=== PATIENT | female | born 1950 | race Caucasian/White ===

== ENCOUNTER 2017-08-14 10:15 | Outpatient (CLI) | payer MEDICARE, MEDICAID ==
[2017-08-14] MEDS ORDERED: ISOVUE-370 76%-LOCM 1 ML ONE (12:14)
== END 2017-08-14 10:16 | disposition home or self-care (01) ==
LOC: BICCT 10:15
PROVIDERS: ATTEND Internal Medicine Cardiovascular Disease
DX: I70.201 Unspecified atherosclerosis of native arteries of extremities, right leg (principal); I70.0 Atherosclerosis of aorta
CPT/HCPCS: 75635

== ENCOUNTER 2017-08-19 11:57 | Outpatient (CLI) | payer MEDICARE, MEDICAID | END 2017-08-19 11:58 | disposition home or self-care (01) | LOC: BICRAD 11:57 | PROVIDERS: ATTEND Specialist | DX: J44.9 Chronic obstructive pulmonary disease, unspecified (principal); R91.1 Solitary pulmonary nodule | CPT/HCPCS: 71046 ==

== ENCOUNTER 2017-08-21 12:46 | Emergency (ER) | payer MEDICARE, MEDICAID ==
[2017-08-21 13:21] LABS: #Basophils 0.1 thou/uL (0.0-0.2); #Eosinphils 0.2 thou/uL (0.0-0.7); #Lymphocytes 3.4 thou/uL (1.20-3.40); #Monocytes 0.6 thou/uL (0.11-0.59); #Neutrophils 5.7 thou/uL (1.40-6.50); %Basophils 1.2 % (0.0-1.0); %Eosinophils 1.7 % (0.0-10.0); %Lymphocytes 34.3 % (21.0-51.0); %Monocytes 6.2 % (0.0-10.0); %Neutrophils 56.7 % (42.0-75.0); Hemoglobin 16.7 g/dL (12.0-16.0); Mean Corpuscular HGB CONC 33.9 g/dL (32.0-36.0); Mean Corpuscular Hemoglobin 31.5 pg (27.0-31.0); Mean Corpuscular Volume 92.8 fl (81.0-99.0); Mean Platelet Volume 9.1 fL (7.4-10.4); Platelet Count 238 thou/uL (130-400); RBC Distribution Width 11.9 % (11.5-14.5); White Blood Cell (WBC) Count 10.1 thou/uL (4.8-10.8)
[2017-08-21 13:47] LABS: ALT (SGPT) 16 U/L (8-55); AST (SGOT) 30 U/L (5-34); Albumin 4.3 g/dL (3.4-4.8); Alkaline Phosphatase 124 U/L (40-150); Anion Gap 13 mmol/L (10-20); BUN (Urea Nitrogen) 15 mg/dL (9.8-20.1); Bilirubin, Total 0.4 mg/dL (0.2-1.2); CK (CPK) 22 U/L (29-168); Calc. Creatinine Clearance 0 mL/min (70-130); Calcium 10.1 mg/dL (7.8-10.44); Carbon Dioxide 25 mmol/L (23-31); Chloride 102 mmol/L (98-107); Estimated GFR-MDRD 54; Globulin 4.1 g/dL (2.4-3.5); Glucose 140 mg/dL (80-115); Potassium 4.8 mmol/L (3.5-5.1); Protein, Total 8.4 g/dL (6.0-8.3); Sodium 135 mmol/L (136-145)
[2017-08-21 13:50] LABS: CKMB 0.6 ng/mL (0-6.6); Troponin I Less than 0.010 ng/mL (< 0.028)
--- NOTE | 2017-08-21 14:43 | RAD ---
CHEST PA AND LATERAL: History: 67-year-old female with history of cough. Patient is a smoker. FINDINGS: Monitor leads overlie the chest. There is a stable circumscribed 1.3 cm diameter nodule in the right upper lobe. There is a small poorly defined slightly elongated parenchymal density seen in the region of the left upper lobe which was not demonstrated on the prior study. Given symptoms of cough, rebekah ivably this could represent a very small patch of pneumonia or pneumonitis. If the patient does have evidence for clinical pneumonia, then treatment and short term follow up is recommended. If this area of parenchymal density does not resolve on these short term follow up studies, then a follow up ches t CT scan is warranted to exclude the possibility of a small poorly circumscribed neoplastic mass. He art size is within normal limits. No evidence for other significant acute process. IMPRESSION: Poorly circumscribed somewhat oblong 0.6 x 1.4 cm diameter density in the left upper lobe region, new from prior exam of 01-14-14. If this is not received following treatment for pneumonia or if the pat ient has no symptoms of pneumonia, then follow up CT scan of the chest is recommended to exclude the possibility of a small mass. Stable circumscribed nodule in the right upper lobe. Atherosclerosis of the aorta. Mild hyperinflation and lower lung zone chronic changes. Code LN.
--- NOTE | 2017-08-21 14:52 | CT ---
HEAD CT WITHOUT CONTRAST: Date: 08/21/17 COMPARISON: 09/06/12. HISTORY: Multiple falls, cough and subjective fever. TECHNIQUE: Serial axial CT imaging at 5 mm intervals from vertex through skull base without contrast. FINDINGS: There is mild ethmoid air cell mucosal thickening bilaterally. There is no displaced calvarial fractu re. There is no intracranial hemorrhage, midline shift, mass effect, or ventricular enlargement. IMPRESSION: No acute findings. POS: [facility]
== END 2017-08-21 15:22 | disposition home or self-care (01) ==
LOC: ERS 12:46
DX: J18.9 Pneumonia, unspecified organism (principal); I10 Essential (primary) hypertension; F43.10 Post-traumatic stress disorder, unspecified; F17.210 Nicotine dependence, cigarettes, uncomplicated; Z79.899 Other long term (current) drug therapy
CPT/HCPCS: 70450; 71046; 80053; 82550; 82553; 84443; 84484; 85025; 93005

== ENCOUNTER 2017-09-05 10:01 | Outpatient (CLI) | payer MEDICARE, MEDICAID | END 2017-09-05 10:02 | disposition home or self-care (01) | LOC: BICMRI 10:01 | PROVIDERS: ATTEND Specialist | DX: S09.90XA Unspecified injury of head, initial encounter (principal); J44.9 Chronic obstructive pulmonary disease, unspecified; W19.XXXA Unspecified fall, initial encounter | CPT/HCPCS: 70544; 70551 ==

== ENCOUNTER 2017-10-02 15:07 | Outpatient (CLI) | payer MEDICARE, MEDICAID | END 2017-10-02 15:08 | disposition home or self-care (01) | LOC: BICRAD 15:07 | PROVIDERS: ATTEND Specialist | DX: M25.551 Pain in right hip (principal); M25.561 Pain in right knee ==

== ENCOUNTER 2018-10-06 12:37 | Inpatient (IN) | payer MEDICARE, MEDICAID ==
[2018-10-06 13:02] LABS: #Basophils 0.1 thou/uL (0.0-0.2); #Lymphocytes 2.9 thou/uL (1.20-3.40); #Monocytes 0.8 thou/uL (0.11-0.59); #Neutrophils 7.3 thou/uL (1.40-6.50); %Basophils 0.7 % (0.0-1.0); %Eosinophils 0.3 % (0.0-10.0); %Lymphocytes 26.1 % (21.0-51.0); %Monocytes 6.8 % (0.0-10.0); %Neutrophils 66.1 % (42.0-75.0); Hemoglobin 15.5 g/dL (12.0-16.0); Mean Corpuscular HGB CONC 32.7 g/dL (32.0-36.0); Mean Corpuscular Hemoglobin 29.4 pg (27.0-31.0); Mean Platelet Volume 8.8 fL (7.4-10.4); Platelet Count 160 thou/uL (130-400); RBC Distribution Width 11.6 % (11.5-14.5); Red Blood Cell (RBC) Count 5.27 mill/uL (4.20-5.40)
--- NOTE | 2018-10-06 13:17 | RAD ---
RADIOGRAPH CHEST 2 VIEWS: DATE: 10/06/2018 HISTORY: 68-year-old female with cardiac murmur and chest pain. COMPARISON: 08/21/2017 FINDINGS: There is no airspace density, pulmonary edema, pleural effusion, pneumothorax, or cardiomegaly. The n oncalcified 13 x 14 x 14 mm right upper lobe pulmonary nodule is unchanged. The 13 x 5 mm focal nodular density in the left upper lobe has not increased in size. It may be sligh tly smaller, perhaps scar. IMPRESSION: 1. No acute cardiopulmonary findings. 2. Right upper lobe pulmonary nodule unchanged. 3. Small left upper lobe lesion may be slightly smaller now.
[2018-10-06 13:26] LABS: ALT (SGPT) 12 U/L (8-55); AST (SGOT) 23 U/L (5-34); Albumin 4.8 g/dL (3.4-4.8); Alkaline Phosphatase 108 U/L (40-150); Anion Gap 16 mmol/L (10-20); BUN (Urea Nitrogen) 8 mg/dL (9.8-20.1); Bilirubin, Total 0.7 mg/dL (0.2-1.2); CK (CPK) 153 U/L (29-168); Calc. Creatinine Clearance 0 mL/min (70-130); Carbon Dioxide 23 mmol/L (23-31); Chloride 103 mmol/L (98-107); Estimated GFR-MDRD 62; Glucose 97 mg/dL (80-115); Potassium 3.6 mmol/L (3.5-5.1); Protein, Total 7.8 g/dL (6.0-8.3); Sodium 138 mmol/L (136-145)
[2018-10-06] MEDS ORDERED: Ondansetron ODT 4 MG TAB SL PRN (14:00)
[2018-10-06] MEDS ORDERED: Lorazepam 1 MG TAB PO PRN (14:00)
[2018-10-06] MEDS ORDERED: Ondansetron PF 4 MG/2 ML Vial IVP PRN (14:00)
[2018-10-06] MEDS ORDERED: Acetaminophen 325 MG TAB PO PRN (14:00)
[2018-10-06] MEDS ORDERED: Lorazepam 2 MG/ML VIAL ONE (14:15)
[2018-10-06 14:31] LABS: Bilirubin Negative (Negative); Blood, Urine Moderate (Negative); Glucose, Urine (Dipstick) Negative (Negative); Leukocyte Negative (Negative); Nitrite Negative (Negative); Protein, Urine (Dipstick) 100 mg/dL (Neg-Trace); Urobilinogen 0.2 mg/dL (Less than 2)
[2018-10-06 14:35] LABS: Clarity Clear (Clear)
[2018-10-06 14:37] LABS: Bacteria/HPF None Seen HPF (None Seen); Squamous Epithelial 0-3 HPF (0-3); WBC/HPF 0-3 HPF (0-3)
[2018-10-06 16:14] VITALS: BMI 20.9
[2018-10-06 17:19] LABS: Troponin I Less than 0.010 ng/mL (< 0.028)
[2018-10-06 19:17] LABS: Troponin I 0.016 ng/mL (< 0.028)
[2018-10-06] MEDS ORDERED: Nitroglycerin 0.4 MG TAB (25 Tab Bottle) PO PRN (20:17)
[2018-10-06] MEDS ORDERED: Sodium Chloride 0.9% 1,000 ML IV SCH (20:30)
[2018-10-06] MEDS: Sodium Chloride 0.9% 1,000 ML IV SCH (20:40)
[2018-10-06] MEDS ORDERED: Prevnar 13-Val Conj/PF 0.5 ML SYRINGE IM ONE (21:00)
[2018-10-06] MEDS: Bupropion 150 MG XL TAB PO SCH (21:30)
--- NOTE | 2018-10-07 | HP ---
CHIEF COMPLAINT: On admission, chest pain. HISTORY OF PRESENT ILLNESS: The patient is a 68-year-old female who has been undergoing a lot of stress and grief. She has recently lost two close family members. In addition, she has not been taking her bipolar medication as directed and has not slept in over 5 days. She came in Dr. Shine' office on the day of admission, where she confessed to having substernal chest pain that would respond to nitroglycerin, also that would radiate to her left arm. It made her short- winded. She denies having vomiting or diaphoresis, but she is quite tearful and in a lot of emotional distress. She admits to extreme paranoia concerning her friends and relatives talking about her. She also admits to visual hallucinations as well. Due to the multiple risk factors including a smoking history, dyslipidemia, hypertension, and acute distress, she is in need of further cardiac evaluation. PAST MEDICAL HISTORY: Significant for chronic back pain, hypertension, history of malignancy in the uterus, hyperlipidemia, posttraumatic stress disorder, bipolar disorder, tobacco abuse, and general medical noncompliance. PAST SURGICAL HISTORY: Includes a hysterectomy, orthopedic back surgery, appendectomy, cholecystectomy. PSYCHIATRIC HISTORY: Includes the aforementioned posttraumatic stress disorder, bipolar disorder, general medical noncompliance, and acute grief reaction. SOCIAL HISTORY: She currently uses tobacco, smokes a half a pack a day for the past 20 years. Denies alcohol use. Denies current illicit drug use. ALLERGIES: HER KNOWN ALLERGIES ARE TO TORADOL, MORPHINE, PENICILLINS. CURRENT MEDICATIONS: At the time of admission include 1. Amitriptyline 50 mg at bedtime. 2. Symbicort 160 two puffs b.i.d. 3. Tizanidine 4 mg q.8 hours. 4. Mirtazapine 15 mg at bedtime. 5. Maxzide 37.5/25 one q.a.m. 6. Trazodone 50 mg at bedtime. 7. Clonazepam 2 mg t.i.d. 8. Tramadol 50 mg one to two tabs q.6 hours p.r.n. pain. REVIEW OF SYSTEMS: CONSTITUTIONAL: At the time of admission, she denies fever or chills. She has general malaise. HEENT: Denies drainage from her eyes or blurred vision. Ears, nose, and throat : Denies sores or lesions. CARDIOVASCULAR: Has chest pain with palpitations. RESPIRATORY: Denies cough. Admits to recent shortness of breath associated with chest pain. GI: Denies nausea, vomiting, or diarrhea. : Denies blood in urine or stool. MUSCULOSKELETAL: Denies any extremity pain or swelling in joints. She has chronic back pain. SKIN: No new rashes or lesions. NEUROLOGIC: She has altered mental status in that she admits to seeing things that are not there. She is overly suspicious and paranoid of others. She states she has not slept in 5 days nor has she been taking her antidepressant medication correctly. PHYSICAL EXAMINATION: VITAL SIGNS: At the time of admission, blood pressure 177/64, pulse 68, respirations 20, and temperature 99.2. Pain scale is 7/10 at this time on her chest. O2 saturation 95% on room air. GENERAL: This is a distraught, cachectic female in moderate emotional distress. HEENT: Normocephalic, atraumatic. Pupils are equal, round, and reactive to light. Injected red conjunctivae. TMs, nares, and pharynx are clear. NECK: Supple. Trachea midline. CHEST: With generally diminished breath sounds. BREASTS: Deferred. HEART: Regular rate and rhythm without murmur. ABDOMEN: Soft, nontender without hepatosplenomegaly. : Deferred. EXTREMITIES: Without clubbing, cyanosis, or edema. Normal range of motion present. Symmetric muscular wasting noted in upper and lower extremities. SKIN: With poor turgor. NEUROLOGIC: Cranial nerves are intact. Gait and cerebellar function are intact. Sensory exam is grossly normal. The mental status is significant for acute emotional distress. LABORATORY AND IMAGING DATA: Lab work on admission showed a chest x-ray with right upper lobe pulmonary nodule that is unchanged, small left upper lobe lesion that is smaller, no acute findings noted. Sodium 138, potassium 3.6, chloride 103, CO2 of 23, BUN is 8, creatinine is 0.9 with a GFR of 62. Liver functions unremarkable. Troponin I is initially negative. BNP is slightly elevated at 127. . WBC is 11, hemoglobin 15.5, hematocrit 47.4 with platelets at 160. Urinalysis is significant for ketones and moderate blood. ASSESSMENT: At the time of admission 1. Chest pain, rule out coronary artery disease. 2. Severe emotional distress. 3. Dehydration. 4. Hematuria. 5. Bipolar disorder with noncompliance of medication. Has psychotic features and chani. PLAN: To serially rule out her chest pain including a nuclear medicine stress test. In the interim, we will begin quetiapine to obtain sleep as well as a mood stabilizer and antidepressant. The patient will be serially re-evaluated. She will also be fluid resuscitated, and cultures will be taken of the urine. Job ID: [id number] MTDD
[2018-10-07] MEDS: Sodium Chloride 0.9% 1,000 ML IV SCH ×4 (01:15→20:46)
[2018-10-07 06:24] LABS: Cardiac Risk 4.6 (Less than 4.5)
[2018-10-07] MEDS ORDERED: Carvedilol 3.125 MG TAB PO SCH (08:00)
[2018-10-07] MEDS ORDERED: cloNIDine 0.1 MG TAB PO PRN (08:20)
[2018-10-07] MEDS ORDERED: ADENOSINE 60 MG/20 ML VIAL ONE (10:13)
[2018-10-07] MEDS: Carvedilol 6.25 MG TAB PO SCH ×2 (11:43→16:00)
[2018-10-07] MEDS: Bupropion 150 MG XL TAB PO SCH ×2 (11:44→20:46)
[2018-10-07] MEDS: Citalopram 20 MG TAB PO SCH (11:44)
[2018-10-07] MEDS: Aspirin 325 mg Enteric Coated Tablet PO SCH (11:44)
--- NOTE | 2018-10-07 12:14 | NM ---
Radionucleotide stress and rest myocardial perfusion scan with CT attenuation correction and SPECT im aging Radionucleotide left ventricular wall motion evaluation and ejection fraction. HISTORY: Chest pain. FINDINGS: Adenosine protocol. There is homogeneous uptake of radiotracer throughout the left ventricu lar myocardium on the stress and rest images. No focal perfusion defect or reversibility. QGS analysis of gated SPECT images shows no focal wall motion abnormalities. Ejection fraction calcul ated at 80%. IMPRESSION: Normal myocardial perfusion scan. Normal LVEF.
[2018-10-07] MEDS ORDERED: Lorazepam 1 MG TAB PO PRN (16:56)
[2018-10-07] MEDS ORDERED: Lorazepam 2 MG/ML VIAL SLOW IVP SCH (17:00)
[2018-10-08] MEDS: Sodium Chloride 0.9% 1,000 ML IV SCH (04:49)
[2018-10-08 05:38] LABS: #Basophils 0.1 thou/uL (0.0-0.2); #Eosinphils 0.1 thou/uL (0.0-0.7); #Lymphocytes 2.3 thou/uL (1.20-3.40); #Monocytes 0.5 thou/uL (0.11-0.59); #Neutrophils 3.7 thou/uL (1.40-6.50); %Basophils 1.4 % (0.0-1.0); %Eosinophils 1.4 % (0.0-10.0); %Lymphocytes 34.3 % (21.0-51.0); %Monocytes 6.9 % (0.0-10.0); %Neutrophils 56.1 % (42.0-75.0); Hemoglobin 13.8 g/dL (12.0-16.0); Mean Corpuscular Hemoglobin 30.1 pg (27.0-31.0); Mean Corpuscular Volume 91.2 fL (78.0-98.0); Mean Platelet Volume 9.3 fL (7.4-10.4); Platelet Count 129 thou/uL (130-400); RBC Distribution Width 11.4 % (11.5-14.5); Red Blood Cell (RBC) Count 4.59 mill/uL (4.20-5.40); White Blood Cell (WBC) Count 6.6 thou/uL (4.8-10.8)
[2018-10-08 06:00] LABS: Anion Gap 9 mmol/L (10-20); BUN (Urea Nitrogen) 8 mg/dL (9.8-20.1); Calc. Creatinine Clearance 58 mL/min (70-130); Calcium 9.1 mg/dL (7.8-10.44); Carbon Dioxide 25 mmol/L (23-31); Chloride 108 mmol/L (98-107); Estimated GFR-MDRD 73; Glucose 84 mg/dL (80-115); Potassium 3.4 mmol/L (3.5-5.1); Sodium 139 mmol/L (136-145)
[2018-10-08] MEDS: Carvedilol 6.25 MG TAB PO SCH ×2 (08:21→16:00)
[2018-10-08] MEDS: Aspirin 325 mg Enteric Coated Tablet PO SCH (08:21)
[2018-10-08] MEDS: Citalopram 20 MG TAB PO SCH (08:21)
[2018-10-08] MEDS: Bupropion 150 MG XL TAB PO SCH ×2 (08:21→20:32)
[2018-10-08] MEDS ORDERED: Lorazepam 1 MG TAB PO SCH (09:00)
[2018-10-08] MEDS: clonazePAM 1 MG TAB PO SCH ×3 (10:01→20:32)
[2018-10-08] MEDS: tiZANidine HCl 4 MG TAB PO SCH ×2 (10:01→20:32)
--- NOTE | 2018-10-08 13:03 | ULT ---
Bilateral renal ultrasound CLINICAL INDICATION: Hematuria COMPARISON: None FINDINGS: Right kidney: No solid mass, or hydronephrosis. Left kidney: No solid mass, or hydronephrosis. Urinary bladder: Normal IMPRESSION: Unremarkable exam.
[2018-10-09 05:08] LABS: #Basophils 0.1 thou/uL (0.0-0.2); #Eosinphils 0.1 thou/uL (0.0-0.7); #Lymphocytes 2.3 thou/uL (1.20-3.40); #Monocytes 0.6 thou/uL (0.11-0.59); #Neutrophils 3.3 thou/uL (1.40-6.50); %Basophils 1.2 % (0.0-1.0); %Eosinophils 1.4 % (0.0-10.0); %Lymphocytes 36.2 % (21.0-51.0); %Monocytes 8.9 % (0.0-10.0); %Neutrophils 52.3 % (42.0-75.0); Hemoglobin 13.6 g/dL (12.0-16.0); Mean Corpuscular HGB CONC 32.3 g/dL (32.0-36.0); Mean Corpuscular Hemoglobin 29.9 pg (27.0-31.0); Mean Corpuscular Volume 92.4 fL (78.0-98.0); Platelet Count 137 thou/uL (130-400); RBC Distribution Width 11.6 % (11.5-14.5); Red Blood Cell (RBC) Count 4.56 mill/uL (4.20-5.40); White Blood Cell (WBC) Count 6.4 thou/uL (4.8-10.8)
[2018-10-09 07:39] VITALS: BP 159/69; TEMP 98.5
[2018-10-09] MEDS: Aspirin 325 mg Enteric Coated Tablet PO SCH (09:06)
[2018-10-09] MEDS: Carvedilol 6.25 MG TAB PO SCH (09:06)
[2018-10-09] MEDS: Citalopram 20 MG TAB PO SCH (09:07)
[2018-10-09] MEDS: clonazePAM 1 MG TAB PO SCH (09:07)
[2018-10-09] MEDS: Bupropion 150 MG XL TAB PO SCH (09:07)
[2018-10-09] MEDS: tiZANidine HCl 4 MG TAB PO SCH (09:07)
--- NOTE | 2018-10-10 11:02 | EKG ---
Test Reason : CP Blood Pressure : / mmHG Vent. Rate : 070 BPM Atrial Rate : 070 BPM P-R Int : 150 ms QRS Dur : 092 ms QT Int : 414 ms P-R-T Axes : 074 024 051 degrees QTc Int : 447 ms Normal sinus rhythm Possible Left atrial enlargement Borderline ECG Confirmed by RONDA VENCES ([id number]), medical transcription editor MORALES HOWARD ([id number]) on 10/10/2018 11:01:25 AM Referred By: Confirmed By:RONDA VENCES
== END 2018-10-09 10:45 | disposition home or self-care (01) | DRG 313 ==
LOC: ERS 12:37 → OBSVTOIN 14:26 → 2SW 14:26 → 2SE 10-07 18:29
PROVIDERS: ADMIT Specialist; ATTEND Specialist
DX: R07.9 Chest pain, unspecified (principal); I10 Essential (primary) hypertension; F17.210 Nicotine dependence, cigarettes, uncomplicated; E78.5 Hyperlipidemia, unspecified; F43.10 Post-traumatic stress disorder, unspecified; E86.0 Dehydration; R31.9 Hematuria, unspecified; F31.9 Bipolar disorder, unspecified; Z91.14 Patient's other noncompliance with medication regimen; Z85.42 Personal history of malignant neoplasm of other parts of uterus; Z90.710 Acquired absence of both cervix and uterus; Z90.49 Acquired absence of other specified parts of digestive tract; Z88.0 Allergy status to penicillin; Z88.8 Allergy status to other drugs, medicaments and biological substances
CPT/HCPCS: 36415; 71046; 76770; 78452; 80048; 80053; 80061; 81003; 81015; 82274; 82550; 83690; 83880; 84484; 85025; 87086; 90471; 90670; 93005; 93017; 93306; 94760; A9500; G0009; J0153; J2060

== ENCOUNTER 2019-11-03 01:58 | Emergency (ER) | payer MEDICARE, OTHER ==
[2019-11-03 02:32] LABS: #Monocytes 0.9 thou/uL (0.11-0.59); #Neutrophils 9.3 thou/uL (1.40-6.50); %Basophils 0.1 % (0.0-1.0); %Eosinophils 0.3 % (0.0-10.0); %Lymphocytes 22.6 % (21.0-51.0); %Monocytes 7.1 % (0.0-10.0); %Neutrophils 69.9 % (42.0-75.0); Hemoglobin 14.3 g/dL (12.0-16.0); Mean Corpuscular HGB CONC 34.5 g/dL (32.0-36.0); Mean Corpuscular Hemoglobin 31.1 pg (27.0-31.0); Mean Corpuscular Volume 90.2 fL (78.0-98.0); Mean Platelet Volume 9.2 fL (7.4-10.4); Platelet Count 156 thou/uL (130-400); RBC Distribution Width 12.1 % (11.5-14.5); White Blood Cell (WBC) Count 13.2 thou/uL (4.8-10.8)
[2019-11-03 02:56] LABS: ALT (SGPT) 16 U/L (8-55); AST (SGOT) 25 U/L (5-34); Albumin 4.4 g/dL (3.4-4.8); Alkaline Phosphatase 81 U/L (40-110); Anion Gap 14 mmol/L (10-20); BUN (Urea Nitrogen) 20 mg/dL (9.8-20.1); Bilirubin, Total 0.5 mg/dL (0.2-1.2); Calc. Creatinine Clearance 0 mL/min (70-130); Calcium 10.1 mg/dL (7.8-10.44); Carbon Dioxide 24 mmol/L (23-31); Chloride 104 mmol/L (98-107); Estimated GFR-MDRD 59; Globulin 3.4 g/dL (2.4-3.5); Glucose 101 mg/dL (80-115); Potassium 3.7 mmol/L (3.5-5.1); Protein, Total 7.8 g/dL (6.0-8.3); Sodium 138 mmol/L (136-145)
--- NOTE | 2019-11-03 07:44 | RAD ---
EXAM: Single view of the chest HISTORY: Chest pain COMPARISON: 11/01/2019 FINDINGS: Single view of the chest shows a normal sized cardiomediastinal silhouette. There is a ques tionable subtle infiltrate in the left lower lobe. The bones are unremarkable IMPRESSION: Possible left lower lobe infiltrate
--- NOTE | 2019-11-03 08:52 | CT ---
PRELIMINARY REPORT/[facility]/EMERGENCY AFTER HOURS PROCEDURE: Receipt of this report by the clinical staff was confirmed with Ovidio Blackwood MD by Felecia Flowers Nov 03, 2019 05:25:00 CDT. Addendum electronically signed by Felecia Flowers on November 03, 2019 5:25:13 AM CDT PROCEDURE: CTA Chest with IV Contrast Material . HISTORY: Chest pain. TECHNIQUE: Axial images were performed with multiplanar and 3-D (maximum intensity projection and sada face-shaded) reconstructions. The patient was given iodinated nonionic IV contrast . COMPARISON: None . FINDINGS: Mild atherosclerosis aorta with no aneurysm or dissection. No evidence of pulmonary embolus. Mediastinum and hilar regions show no masses or lymphadenopathy. Normal size heart with no pericardial fluid. 12 mm pulmonary nodule RIGHT upper lobe image 33 series 2. Scar versus atelectasis lingula and RIGHT middle lobe. No pleural fluid or pulmonary consolidation. Visualized upper abdomen shows no significant abnormality. No acute bony abnormality. IMPRESSION: No pulmonary embolus or aortic dissection. RIGHT upper lobe mass and neoplasm should be excluded. Biopsy or PET scan may be helpful. No pulmonary consolidation. ELECTRONICALLY SIGNED BY: Stephen Justin MD Nov 03, 2019 5:21:32 AM CDT This report is intended for review by the ordering physician only, in accordance of law. If you recei ve this report in error, please call [facility] at [phone]. FINAL REPORT EMERGENCY AFTER HOURS CTA CHEST WITH CONTRAST: COMPARISON: 01/14/2014. FINDINGS/IMPRESSION: I agree with the findings and impression given in the preliminary report per [facility] physici an. 1. No evidence of pulmonary thromboembolism. 2. There is a stable, well circumscribed mass in the right upper lobe. This has remained stable sinc e the exam in 2013. No further follow-up of this lesion is necessary given its stability. POS: [facility]
[2019-11-03 13:16] LABS: SARS-CoV-2 MS2 Positive; SARS-CoV-2 N Gene Negative; SARS-CoV-2 S Gene Negative; SARS-CoV-2 by NAA Not Detected (NotDetected); SARS-CoV-2 orf1ab Negative
[2019-11-03] MEDS ORDERED: Iopamidol-370 76% 500 ML 1 ML ONE (15:07)
== END 2019-11-03 05:50 | disposition home or self-care (01) ==
LOC: ERS 01:58
DX: J18.9 Pneumonia, unspecified organism (principal); I10 Essential (primary) hypertension; F43.10 Post-traumatic stress disorder, unspecified; F17.210 Nicotine dependence, cigarettes, uncomplicated; Z79.899 Other long term (current) drug therapy; Z20.828 Contact with and (suspected) exposure to other viral communicable diseases
CPT/HCPCS: 71045; 71275; 80053; 82962; 84484; 85025; 93005; 96360; 96361; 99285; U0003; 36415; 36416; 87635; Q9967

== ENCOUNTER 2020-07-28 11:08 | Inpatient (IN) | payer MEDICARE, OTHER ==
[2020-07-28] MEDS ORDERED: Atropine Sulfate 1 mg/10 ml Syringe ONE ×2 (11:26→11:46)
[2020-07-28 11:36] LABS: #Basophils 0.1 thou/uL (0.0-0.2); #Eosinphils 0.1 thou/uL (0.0-0.7); #Monocytes 0.8 thou/uL (0.11-0.59); #Neutrophils 5.3 thou/uL (1.40-6.50); %Basophils 0.7 % (0.0-1.0); %Eosinophils 1.5 % (0.0-10.0); %Lymphocytes 32.7 % (21.0-51.0); %Monocytes 8.4 % (0.0-10.0); %Neutrophils 56.8 % (42.0-75.0); Hemoglobin 12.6 g/dL (12.0-16.0); Mean Corpuscular HGB CONC 32.5 g/dL (32.0-36.0); Mean Corpuscular Hemoglobin 30.2 pg (27.0-31.0); Mean Corpuscular Volume 92.8 fL (78.0-98.0); Mean Platelet Volume 8.6 fL (7.4-10.4); Platelet Count 147 thou/uL (130-400); RBC Distribution Width 12.1 % (11.5-14.5); Red Blood Cell (RBC) Count 4.19 mill/uL (4.20-5.40); White Blood Cell (WBC) Count 9.3 thou/uL (4.8-10.8)
[2020-07-28] MEDS ORDERED: DOPamine 400 MG/D5W 250 ML 250 ML ONE (11:44)
[2020-07-28 11:58] LABS: ALT (SGPT) 18 U/L (8-55); AST (SGOT) 27 U/L (5-34); Albumin 3.9 g/dL (3.4-4.8); Alkaline Phosphatase 77 U/L (40-110); Anion Gap 10 mmol/L (10-20); BUN (Urea Nitrogen) 11 mg/dL (9.8-20.1); Bilirubin, Total 0.4 mg/dL (0.2-1.2); Calc. Creatinine Clearance 0 mL/min (70-130); Calcium 9.6 mg/dL (7.8-10.44); Carbon Dioxide 28 mmol/L (23-31); Chloride 103 mmol/L (98-107); Globulin 2.9 g/dL (2.4-3.5); Glucose 106 mg/dL (80-115); Magnesium 1.8 mg/dL (1.6-2.6); Potassium 4.4 mmol/L (3.5-5.1); Protein, Total 6.8 g/dL (5.8-8.1); Sodium 137 mmol/L (136-145)
[2020-07-28] MEDS ORDERED: Calcium Chloride 1 GM/10 ML Abboject SYRINGE ONE (12:04)
[2020-07-28] MEDS ORDERED: Calcium Gluc 4.6 MEQ/10 ML (100 MG/ML) ONE ×2 (12:07→12:08)
[2020-07-28 13:57] LABS: SARS-CoV-2 NAA Rapid Test Not Detected (NotDetected)
[2020-07-28] MEDS ORDERED: Iopamidol-370 76% 500 ML 1 ML ONE (15:14)
[2020-07-28] MEDS ORDERED: DOPamine 400 MG/D5W 250 ML 250 ML IVPB SCH (15:45)
[2020-07-28] MEDS ORDERED: Ondansetron PF 4 MG/2 ML Vial SLOW IVP PRN (15:46)
[2020-07-28] MEDS ORDERED: Acetaminophen 325 MG TAB PO PRN (15:46)
[2020-07-28 15:52] VITALS: BMI 26.0
[2020-07-28] MEDS: Sodium Chloride 0.9% 1,000 ML IV SCH (16:03)
[2020-07-28 17:04] LABS: Troponin I Less than 0.010 ng/mL (< 0.028)
[2020-07-28] MEDS: Mometasone 200 MCG/Formoterol 5 MCG 120 PUFF INHALER INH SCH (18:46)
[2020-07-28] MEDS: Atorvastatin Calcium 20 MG TAB PO SCH (20:50)
[2020-07-28] MEDS: Mirtazapine 15 MG TAB PO SCH (20:51)
[2020-07-28] MEDS: busPIRone HCl 10 MG TAB PO SCH (20:51)
[2020-07-28] MEDS: Nitrofurantoin Monohyd/M-Cryst 100 MG CAP PO SCH (20:52)
[2020-07-28 21:31] LABS: Troponin I Less than 0.010 ng/mL (< 0.028)
[2020-07-29] MEDS: Sodium Chloride 0.9% 1,000 ML IV SCH ×3 (01:26→21:48)
[2020-07-29 06:41] LABS: #Eosinphils 0.1 thou/uL (0.0-0.7); #Lymphocytes 1.8 thou/uL (1.20-3.40); #Monocytes 0.4 thou/uL (0.11-0.59); #Neutrophils 3.8 thou/uL (1.40-6.50); %Basophils 0.6 % (0.0-1.0); %Lymphocytes 28.5 % (21.0-51.0); %Monocytes 6.6 % (0.0-10.0); %Neutrophils 62.2 % (42.0-75.0); Hemoglobin 12.7 g/dL (12.0-16.0); Mean Corpuscular HGB CONC 32.8 g/dL (32.0-36.0); Mean Corpuscular Hemoglobin 30.4 pg (27.0-31.0); Mean Corpuscular Volume 92.8 fL (78.0-98.0); Mean Platelet Volume 8.5 fL (7.4-10.4); Platelet Count 130 thou/uL (130-400); RBC Distribution Width 11.8 % (11.5-14.5); Red Blood Cell (RBC) Count 4.17 mill/uL (4.20-5.40); White Blood Cell (WBC) Count 6.2 thou/uL (4.8-10.8)
[2020-07-29 07:01] LABS: Anion Gap 10 mmol/L (10-20); BUN (Urea Nitrogen) 7 mg/dL (9.8-20.1); Calc. Creatinine Clearance 72 mL/min (70-130); Calcium 9.1 mg/dL (7.8-10.44); Carbon Dioxide 28 mmol/L (23-31); Chloride 108 mmol/L (98-107); Cholesterol 119 mg/dl (< 200 Desired); Glucose 105 mg/dL (80-115); HDL Cholesterol 30 mg/dL (>60 Neg Risk); LDL Cholesterol, Calculated 68 mg/dL; Sodium 142 mmol/L (136-145); Triglycerides 104 mg/dL (Less than 150)
[2020-07-29] MEDS: Mometasone 200 MCG/Formoterol 5 MCG 120 PUFF INHALER INH SCH ×2 (07:30→20:11)
[2020-07-29] MEDS: Citalopram 20 MG TAB PO SCH (09:15)
[2020-07-29] MEDS: busPIRone HCl 10 MG TAB PO SCH ×3 (09:15→21:29)
[2020-07-29] MEDS: Aspirin Chewable 81 MG TAB PO SCH (09:15)
[2020-07-29] MEDS: Nitrofurantoin Monohyd/M-Cryst 100 MG CAP PO SCH ×2 (09:20→21:29)
[2020-07-29] MEDS: Losartan 25 MG TAB PO SCH (12:09)
[2020-07-29] MEDS: Atorvastatin Calcium 20 MG TAB PO SCH (21:29)
[2020-07-29] MEDS: Mirtazapine 15 MG TAB PO SCH (21:29)
[2020-07-30] MEDS: Mometasone 200 MCG/Formoterol 5 MCG 120 PUFF INHALER INH SCH (08:04)
[2020-07-30] MEDS: Aspirin Chewable 81 MG TAB PO SCH (09:52)
[2020-07-30] MEDS: busPIRone HCl 10 MG TAB PO SCH (09:53)
[2020-07-30] MEDS: Citalopram 20 MG TAB PO SCH (09:53)
[2020-07-30] MEDS: Nitrofurantoin Monohyd/M-Cryst 100 MG CAP PO SCH (09:54)
[2020-07-30] MEDS: Losartan 25 MG TAB PO SCH (09:54)
[2020-07-30] MEDS: Sodium Chloride 0.9% 1,000 ML IV SCH (11:29)
[2020-07-30 12:15] VITALS: BP 171/75; TEMP 98.2
== END 2020-07-30 12:10 | disposition home or self-care (01) | DRG 308 ==
LOC: ERS 11:08 → CCU 12:53 → 2NO 07-29 15:31
PROVIDERS: ADMIT Specialist; ATTEND Specialist
DX: R00.1 Bradycardia, unspecified (principal); G92 Toxic encephalopathy; C78.00 Secondary malignant neoplasm of unspecified lung; I95.2 Hypotension due to drugs; Z20.822 Contact with and (suspected) exposure to COVID-19; T42.4X5A Adverse effect of benzodiazepines, initial encounter; T44.7X5A Adverse effect of beta-adrenoreceptor antagonists, initial encounter; F43.10 Post-traumatic stress disorder, unspecified; F41.9 Anxiety disorder, unspecified; F32.9 Major depressive disorder, single episode, unspecified; M54.9 Dorsalgia, unspecified; G89.29 Other chronic pain; E78.5 Hyperlipidemia, unspecified; F17.210 Nicotine dependence, cigarettes, uncomplicated; Z88.0 Allergy status to penicillin; Z88.5 Allergy status to narcotic agent; Z88.8 Allergy status to other drugs, medicaments and biological substances; Z79.899 Other long term (current) drug therapy; Z85.038 Personal history of other malignant neoplasm of large intestine; Z90.710 Acquired absence of both cervix and uterus; Z90.49 Acquired absence of other specified parts of digestive tract; Z79.51 Long term (current) use of inhaled steroids; Z91.14 Patient's other noncompliance with medication regimen
CPT/HCPCS: 0240U; 36415; 36416; 36556; 71045; 71275; 74174; 80048; 80053; 80061; 82533; 83735; 83880; 84443; 84484; 85025; 93005; 93306; 94640; 96365; 96366; 96375; J0461; J1265; J2001; J7620; Q9967

== ENCOUNTER 2020-08-09 19:52 | Emergency (ER) | payer MEDICARE, OTHER ==
[2020-08-09 20:19] LABS: #Basophils 0.1 thou/uL (0.0-0.2); #Eosinphils 0.1 thou/uL (0.0-0.7); #Lymphocytes 3.1 thou/uL (1.20-3.40); #Monocytes 0.9 thou/uL (0.11-0.59); #Neutrophils 8.2 thou/uL (1.40-6.50); %Basophils 0.7 % (0.0-1.0); %Eosinophils 0.9 % (0.0-10.0); %Monocytes 7.2 % (0.0-10.0); %Neutrophils 66.1 % (42.0-75.0); Hemoglobin 14.2 g/dL (12.0-16.0); Mean Corpuscular HGB CONC 33.5 g/dL (32.0-36.0); Mean Corpuscular Volume 92.4 fL (78.0-98.0); Mean Platelet Volume 8.4 fL (7.4-10.4); Platelet Count 213 thou/uL (130-400); RBC Distribution Width 12.2 % (11.5-14.5); Red Blood Cell (RBC) Count 4.59 mill/uL (4.20-5.40); White Blood Cell (WBC) Count 12.3 thou/uL (4.8-10.8)
[2020-08-09] MEDS ORDERED: Nitroglycerin 2% Ointment 1 INCH/1 GM Packet ONE (20:33)
[2020-08-09 20:41] LABS: Acetaminophen Less than 6.0 mcg/mL (10.0-30.0); Alcohol Less than 10 mg/dL (Less than 10); Salicylate Less than 8.0 mg/dL (15.0-30.0)
[2020-08-09 20:42] LABS: ALT (SGPT) 17 U/L (8-55); AST (SGOT) 26 U/L (5-34); Albumin 4.3 g/dL (3.4-4.8); Alkaline Phosphatase 78 U/L (40-110); Anion Gap 16 mmol/L (10-20); BUN (Urea Nitrogen) 8 mg/dL (9.8-20.1); Bilirubin, Total 0.6 mg/dL (0.2-1.2); Calc. Creatinine Clearance 0 mL/min (70-130); Calcium 10.2 mg/dL (7.8-10.44); Carbon Dioxide 22 mmol/L (23-31); Chloride 103 mmol/L (98-107); Glucose 117 mg/dL (80-115); Lipase 5 U/L (8-78); Potassium 3.5 mmol/L (3.5-5.1); Protein, Total 7.3 g/dL (5.8-8.1); Sodium 137 mmol/L (136-145)
[2020-08-09] MEDS ORDERED: Promethazine 25 MG TAB ONE (22:37)
[2020-08-09 22:41] LABS: Bilirubin Negative (Negative); Blood, Urine 1+ (Negative); Calcium Oxalate Crystals 4+ HPF (None Seen); Clarity Turbid (Clear); Glucose, Urine (Dipstick) Normal (Negative); Ketone, Urine 10 mg/dL (Negative); Leukocyte 500 Leu/uL (Negative); Mucous/LPF Rare LPF (<2+); Nitrite Negative (Negative); Protein, Urine (Dipstick) 70 mg/dL (Neg-Trace); Specific Gravity, Urine 1.019 (1.002-1.036); WBC/HPF 21-50 HPF (0-3)
[2020-08-09 22:42] LABS: Amphetamine Not Detected (NotDetected); Barbiturates Screen Not Detected (NotDetected); Benzodiazepine Screen Detected (NotDetected); Cocaine Metabolite Screen Not Detected (NotDetected); Medtox Control Line Valid? VALID (VALID); Medtox Reader # READER 4; Methadone Not Detected (NotDetected); Methamphetamine Not Detected (NotDetected); Opiate Screen Not Detected (NotDetected); Oxycodone Screen Not Detected (NotDetected); Phencyclidine (PCP) Not Detected (NotDetected); THC/Cannabinoid Screen Not Detected (NotDetected); Tricyclic Screen Not Detected (NotDetected)
[2020-08-09 22:57] LABS: Bacteria/HPF 1+ HPF (None Seen)
[2020-08-09 23:19] LABS: Troponin I Less than 0.010 ng/mL (< 0.028)
== END 2020-08-10 00:42 | disposition home or self-care (01) ==
LOC: ERS 19:52
DX: N39.0 Urinary tract infection, site not specified (principal); I10 Essential (primary) hypertension; J44.9 Chronic obstructive pulmonary disease, unspecified; F17.210 Nicotine dependence, cigarettes, uncomplicated; Z79.899 Other long term (current) drug therapy; Z79.82 Long term (current) use of aspirin
CPT/HCPCS: 36415; 70450; 71045; 80053; 80306; 80307; 81003; 81015; 83690; 84484; 85025; 85379; 93005; Q0169

== ENCOUNTER 2021-07-10 11:51 | Inpatient (IN) | payer MEDICARE, MEDICAID ==
[2021-07-10] MEDS ORDERED: Ondansetron PF 4 MG/2 ML Vial IVP PRN (12:28)
[2021-07-10] MEDS ORDERED: Lorazepam 2 MG/ML VIAL SLOW IVP PRN (12:28)
[2021-07-10 13:22] VITALS: BMI 20.3
[2021-07-10] MEDS: Lactated Ringer's 1,000 ML IV SCH ×3 (13:34→20:43)
[2021-07-10 13:49] LABS: SARS-CoV-2 NAA Rapid Test Not Detected (NotDetected)
[2021-07-10 14:16] LABS: #Eosinphils 0.1 thou/uL (0.0-0.7); #Lymphocytes 1.8 thou/uL (1.20-3.40); #Monocytes 0.5 thou/uL (0.11-0.59); #Neutrophils 6.7 thou/uL (1.40-6.50); %Basophils 0.5 % (0.0-1.0); %Eosinophils 1.5 % (0.0-10.0); %Lymphocytes 19.6 % (21.0-51.0); %Monocytes 5.2 % (0.0-10.0); %Neutrophils 73.2 % (42.0-75.0); Hemoglobin 12.5 g/dL (12.0-16.0); Mean Corpuscular HGB CONC 32.9 g/dL (32.0-36.0); Mean Corpuscular Volume 94.2 fL (78.0-98.0); Mean Platelet Volume 7.8 fL (7.4-10.4); Platelet Count 161 thou/uL (130-400); RBC Distribution Width 11.6 % (11.5-14.5); Red Blood Cell (RBC) Count 4.03 mill/uL (4.20-5.40); White Blood Cell (WBC) Count 9.2 thou/uL (4.8-10.8)
[2021-07-10 14:37] LABS: ALT (SGPT) 15 U/L (8-55); AST (SGOT) 25 U/L (5-34); Albumin 3.8 g/dL (3.4-4.8); Alkaline Phosphatase 101 U/L (40-110); Anion Gap 14 mmol/L (10-20); BUN (Urea Nitrogen) 9 mg/dL (9.8-20.1); Bilirubin, Total 0.3 mg/dL (0.2-1.2); Calc. Creatinine Clearance 44 mL/min (70-130); Calcium 9.4 mg/dL (7.8-10.44); Carbon Dioxide 23 mmol/L (23-31); Chloride 108 mmol/L (98-107); Globulin 3.2 g/dL (2.4-3.5); Glucose 81 mg/dL (80-115); Potassium 3.5 mmol/L (3.5-5.1); Sodium 141 mmol/L (136-145)
[2021-07-10 14:46] LABS: Bilirubin Negative (Negative); Blood, Urine 2+ (Negative); Clarity Clear (Clear); Glucose, Urine (Dipstick) Normal (Negative); Ketone, Urine Negative (Negative); Leukocyte 500 Leu/uL (Negative); Nitrite Negative (Negative); Protein, Urine (Dipstick) 20 mg/dL (Neg-Trace); Specific Gravity, Urine 1.008 (1.002-1.036); Squamous Epithelial 0-3 HPF (0-3); Urobilinogen Normal mg/dL (Less than 2)
[2021-07-10 15:07] LABS: Bacteria/HPF 1+ HPF (None Seen); WBC/HPF 21-50 HPF (0-3)
[2021-07-10 15:08] LABS: Calcium Oxalate Crystals Rare HPF (None Seen)
[2021-07-10] MEDS: Fentanyl 100 MCG/2 ML VIAL SLOW IVP PRN ×2 (18:30→21:11)
[2021-07-10] MEDS ORDERED: Phenazopyridine HCl 100 MG TAB PO SCH (20:30)
[2021-07-10] MEDS: cefTRIAXone\\ROCEPHIN 1 GM in Sodium Chloride 0.9% 100 ML IVPB SCH (20:43)
[2021-07-10] MEDS: Mirtazapine 30 MG TAB PO SCH (20:43)
[2021-07-11] MEDS: Lactated Ringer's 1,000 ML IV SCH ×3 (05:24→18:32)
[2021-07-11 06:57] LABS: Free T4 (Free Thyroxine) 0.76 ng/dL (0.70-1.48); Thyroid Stimulating Hormone 3.5142 uIU/mL (0.35-4.94)
[2021-07-11] MEDS: Lorazepam 0.5 MG TAB PO SCH ×3 (08:33→20:35)
[2021-07-11] MEDS: Phenazopyridine HCl 100 MG TAB PO SCH ×3 (08:33→18:26)
[2021-07-11] MEDS: Acetaminophen/Codeine 30-300mg Tablet PO PRN (10:02)
[2021-07-11] MEDS: Nicotine 21 MG PATCH TOP SCH (12:07)
[2021-07-11] MEDS: busPIRone HCl 5 MG TAB PO SCH ×2 (14:36→20:35)
[2021-07-11] MEDS ORDERED: GoLYTELY 4,000 ml Bottle PO SCH (17:00)
[2021-07-11] MEDS: Mirtazapine 30 MG TAB PO SCH (20:35)
[2021-07-11] MEDS: cefTRIAXone\\ROCEPHIN 1 GM in Sodium Chloride 0.9% 100 ML IVPB SCH (20:36)
[2021-07-12] MEDS: Acetaminophen/Codeine 30-300mg Tablet PO PRN ×2 (00:22→09:43)
[2021-07-12] MEDS: Lactated Ringer's 1,000 ML IV SCH ×4 (04:57→14:56)
[2021-07-12] MEDS ORDERED: tiZANidine HCl 4 MG TAB PO PRN (06:18)
[2021-07-12] MEDS: Phenazopyridine HCl 100 MG TAB PO SCH ×3 (08:32→16:44)
[2021-07-12] MEDS: busPIRone HCl 5 MG TAB PO SCH ×3 (08:32→20:48)
[2021-07-12] MEDS: Lorazepam 0.5 MG TAB PO SCH ×3 (08:32→20:49)
[2021-07-12] MEDS: Nicotine 21 MG PATCH TOP SCH (12:29)
[2021-07-12] MEDS ORDERED: PROPOFOL 200 MG/20 ML VIAL ONE (13:01)
[2021-07-12] MEDS: Mirtazapine 30 MG TAB PO SCH (20:49)
[2021-07-12] MEDS: cefTRIAXone\\ROCEPHIN 1 GM in Sodium Chloride 0.9% 100 ML IVPB SCH (20:49)
[2021-07-13] MEDS: Lactated Ringer's 1,000 ML IV SCH ×3 (01:00→12:53)
[2021-07-13 07:41] VITALS: BP 145/64; TEMP 98.6
[2021-07-13] MEDS: Phenazopyridine HCl 100 MG TAB PO SCH (08:55)
[2021-07-13] MEDS: Lorazepam 0.5 MG TAB PO SCH (08:56)
[2021-07-13] MEDS: busPIRone HCl 5 MG TAB PO SCH (08:56)
[2021-07-13] MEDS: Nicotine 21 MG PATCH TOP SCH (12:53)
== END 2021-07-13 13:08 | disposition home or self-care (01) | DRG 392 ==
LOC: T4-A 12:12
PROVIDERS: ADMIT Specialist; ATTEND Specialist
PROC: 0DBN8ZZ Excision of Sigmoid Colon, Via Natural or Artificial Opening Endoscopic (ICD-10-PCS; principal; 2021-07-12)
PROC: 0DBG8ZX Excision of Left Large Intestine, Via Natural or Artificial Opening Endoscopic, Diagnostic (ICD-10-PCS; 2021-07-12)
PROC: 0DBF8ZX Excision of Right Large Intestine, Via Natural or Artificial Opening Endoscopic, Diagnostic (ICD-10-PCS; 2021-07-12)
DX: R19.7 Diarrhea, unspecified (principal); C78.00 Secondary malignant neoplasm of unspecified lung; K57.30 Diverticulosis of large intestine without perforation or abscess without bleeding; Q27.39 Arteriovenous malformation, other site; K63.5 Polyp of colon; F41.9 Anxiety disorder, unspecified; G89.29 Other chronic pain; M54.9 Dorsalgia, unspecified; F32.A Depression, unspecified; J44.9 Chronic obstructive pulmonary disease, unspecified; E78.5 Hyperlipidemia, unspecified; F43.10 Post-traumatic stress disorder, unspecified; G47.00 Insomnia, unspecified; F17.210 Nicotine dependence, cigarettes, uncomplicated; K52.839 Microscopic colitis, unspecified; I10 Essential (primary) hypertension; R63.6 Underweight; E86.0 Dehydration; Z20.822 Contact with and (suspected) exposure to COVID-19; Z68.20 Body mass index [BMI] 20.0-20.9, adult; Z88.5 Allergy status to narcotic agent; Z88.0 Allergy status to penicillin; Z88.8 Allergy status to other drugs, medicaments and biological substances; Z79.82 Long term (current) use of aspirin; Z79.899 Other long term (current) drug therapy; Z85.038 Personal history of other malignant neoplasm of large intestine; Z85.42 Personal history of malignant neoplasm of other parts of uterus; Z91.19 Patient's noncompliance with other medical treatment and regimen; Z90.49 Acquired absence of other specified parts of digestive tract; Z98.890 Other specified postprocedural states; Z90.710 Acquired absence of both cervix and uterus
CPT/HCPCS: 36415; 80053; 81001; 84439; 84443; 84481; 85025; 87040; 87045; 87046; 87086; 87324; 87328; 87329; 87338; 87427; 87449; 88305; J0696; J2704; J3010; J3490; J7120; U0002

== ENCOUNTER 2021-09-19 11:16 | Emergency (ER) | payer MEDICARE, MEDICAID ==
[~2021-09-19 11:16] MED LIST: ISOVUE-370 76%-LOCM 1 ML ONE
[2021-09-19] MEDS ORDERED: Dicyclomine 20 MG/2 ML VIAL ONE (12:37)
[2021-09-19] MEDS ORDERED: Ondansetron PF 4 MG/2 ML Vial ONE (12:37)
[2021-09-19 12:49] LABS: Bilirubin Negative (Negative); Blood, Urine 3+ (Negative); Clarity Turbid (Clear); Glucose, Urine (Dipstick) Normal (Negative); Ketone, Urine Negative (Negative); Leukocyte 500 Leu/uL (Negative); Nitrite Negative (Negative); Protein, Urine (Dipstick) 200 mg/dL (Neg-Trace); RBC/HPF Greater than 50 HPF (0-3); Squamous Epithelial None Seen HPF (0-3); Urobilinogen Normal mg/dL (Less than 2); WBC/HPF Greater than 50 HPF (0-3)
[2021-09-19 12:50] LABS: Bacteria/HPF 1+ HPF (None Seen)
[2021-09-19 12:57] LABS: #Eosinphils 0.1 thou/uL (0.0-0.7); #Lymphocytes 2.2 thou/uL (1.20-3.40); #Monocytes 0.7 thou/uL (0.11-0.59); #Neutrophils 7.8 thou/uL (1.40-6.50); %Basophils 0.3 % (0.0-1.0); %Eosinophils 0.6 % (0.0-10.0); %Lymphocytes 20.4 % (21.0-51.0); %Neutrophils 72.7 % (42.0-75.0); Hemoglobin 12.5 g/dL (12.0-16.0); Mean Corpuscular Hemoglobin 29.8 pg (27.0-31.0); Mean Corpuscular Volume 90.1 fL (78.0-98.0); Platelet Count 241 thou/uL (130-400); RBC Distribution Width 13.7 % (11.5-14.5); Red Blood Cell (RBC) Count 4.19 mill/uL (4.20-5.40); White Blood Cell (WBC) Count 10.7 thou/uL (4.8-10.8)
[2021-09-19 13:16] LABS: ALT (SGPT) 8 U/L (8-55); AST (SGOT) 15 U/L (5-34); Albumin 3.3 g/dL (3.4-4.8); Alkaline Phosphatase 93 U/L (40-110); Anion Gap 10 mmol/L (10-20); BUN (Urea Nitrogen) 11 mg/dL (9.8-20.1); Bilirubin, Total 0.3 mg/dL (0.2-1.2); CK (CPK) 37 U/L (29-168); Calc. Creatinine Clearance 0 mL/min (70-130); Calcium 9.1 mg/dL (7.8-10.44); Carbon Dioxide 28 mmol/L (23-31); Chloride 106 mmol/L (98-107); Globulin 2.9 g/dL (2.4-3.5); Glucose 98 mg/dL (80-115); Lipase 7 U/L (8-78); Protein, Total 6.2 g/dL (5.8-8.1); Sodium 141 mmol/L (136-145)
[2021-09-19 13:34] LABS: Potassium 2.9 mmol/L (3.5-5.1)
[2021-09-19] MEDS ORDERED: Potassium Chloride 20 MEQ TAB ONE (14:38)
[2021-09-19] MEDS ORDERED: Magnesium 2 GM/50 ML BAG (IN WATER) ONE (14:38)
== END 2021-09-19 15:56 | disposition home or self-care (01) ==
LOC: ERS 11:16
DX: N32.89 Other specified disorders of bladder (principal); I10 Essential (primary) hypertension; F17.210 Nicotine dependence, cigarettes, uncomplicated; Z79.82 Long term (current) use of aspirin; Z79.899 Other long term (current) drug therapy
CPT/HCPCS: 36415; 74177; 80053; 81003; 81015; 82550; 83690; 85025; 87086; 93005; 96372; 96374; 96375; J0500; J2405; J3475; Q9966

== ENCOUNTER 2021-12-02 16:45 | Observation (INO) | payer OTHER, MEDICAID ==
[2021-12-02 17:31] LABS: Hemoglobin 12.8 g/dL (12.0-16.0); Mean Corpuscular HGB CONC 34.4 g/dL (32.0-36.0); Mean Corpuscular Hemoglobin 30.7 pg (27.0-31.0); Mean Corpuscular Volume 89.2 fL (78.0-98.0); Mean Platelet Volume 8.5 fL (7.4-10.4); Platelet Count 277 thou/uL (130-400); RBC Distribution Width 13.7 % (11.5-14.5); Red Blood Cell (RBC) Count 4.18 mill/uL (4.20-5.40); White Blood Cell (WBC) Count 17.4 thou/uL (4.8-10.8)
[2021-12-02 17:33] LABS: Bilirubin Negative (Negative); Blood, Urine 1+ (Negative); Clarity Clear (Clear); Glucose, Urine (Dipstick) Normal (Negative); Ketone, Urine 10 mg/dL (Negative); Leukocyte 250 Leu/uL (Negative); Nitrite Negative (Negative); Protein, Urine (Dipstick) 70 mg/dL (Neg-Trace); RBC/HPF 0-3 HPF (0-3); Specific Gravity, Urine 1.021 (1.002-1.036); Squamous Epithelial 0-3 HPF (0-3); Urobilinogen Normal mg/dL (Less than 2); pH, Urine 5.5 (5.0-9.0)
[2021-12-02 17:39] LABS: Bacteria/HPF 3+ HPF (None Seen)
[2021-12-02 17:43] LABS: Band 4 % (5-11); Lymphocytes 12 % (21-51); MDiff Complete? YES; Monocytes 4 % (0-10); Neutrophil 80 % (42-75); Platelet Morphology Comment Appears Adequate; RBC Morphology Normal
[2021-12-02 17:44] LABS: Acetaminophen Less than 10.0 mcg/mL (10.0-30.0); Alcohol Less than 10 mg/dL (Less than 10); Salicylate Less than 8.0 mg/dL (15.0-30.0)
[2021-12-02 17:46] LABS: ALT (SGPT) 12 U/L (8-55); AST (SGOT) 19 U/L (5-34); Alkaline Phosphatase 118 U/L (40-110); Anion Gap 17 mmol/L (10-20); BUN (Urea Nitrogen) 10 mg/dL (9.8-20.1); Bilirubin, Total 0.4 mg/dL (0.2-1.2); CK (CPK) 45 U/L (29-168); Calc. Creatinine Clearance 0 mL/min (70-130); Calcium 9.9 mg/dL (7.8-10.44); Carbon Dioxide 22 mmol/L (23-31); Chloride 102 mmol/L (98-107); Estimated GFR 55; Globulin 3.7 g/dL (2.4-3.5); Glucose 121 mg/dL (80-115); Lipase 11 U/L (8-78); Protein, Total 7.7 g/dL (5.8-8.1); Sodium 138 mmol/L (136-145)
[2021-12-02 17:53] LABS: Potassium 2.9 mmol/L (3.5-5.1)
[2021-12-02] MEDS ORDERED: Potassium Chloride 20 MEQ TAB ONE (18:43)
[2021-12-02] MEDS ORDERED: Sodium Chloride 0.9% 100 ML ONE (18:49)
[2021-12-02] MEDS ORDERED: Cefepime 2 GM VIAL ONE (18:49)
[2021-12-02] MEDS ORDERED: Acetaminophen 325 MG TAB ONE (19:07)
[2021-12-02 21:09] LABS: Troponin I 0.011 ng/mL (< 0.028)
[2021-12-02 21:39] VITALS: BMI 19.3
[2021-12-02 23:52] LABS: Troponin I Less than 0.010 ng/mL (< 0.028)
[2021-12-03] MEDS ORDERED: Acetaminophen 325 MG TAB PO PRN (06:41)
[2021-12-03] MEDS ORDERED: cefTRIAXone\\ROCEPHIN 2 GM in Sodium Chloride 0.9% 100 ML IVPB SCH (08:00)
[2021-12-03 08:13] VITALS: TEMP 97.8
[2021-12-03] MEDS ORDERED: busPIRone HCl 10 MG TAB PO SCH (09:00)
[2021-12-03] MEDS ORDERED: Potassium Chloride 20 MEQ TAB PO SCH ×2 (09:30→10:00)
[2021-12-03 09:42] LABS: #Eosinphils 0.1 thou/uL (0.0-0.7); #Monocytes 0.7 thou/uL (0.11-0.59); %Basophils 0.2 % (0.0-1.0); %Eosinophils 0.5 % (0.0-10.0); %Lymphocytes 14.8 % (21.0-51.0); %Monocytes 4.9 % (0.0-10.0); %Neutrophils 79.7 % (42.0-75.0); Hemoglobin 11.1 g/dL (12.0-16.0); Mean Corpuscular HGB CONC 32.7 g/dL (32.0-36.0); Mean Corpuscular Hemoglobin 29.3 pg (27.0-31.0); Mean Corpuscular Volume 89.6 fL (78.0-98.0); Mean Platelet Volume 7.5 fL (7.4-10.4); Platelet Count 313 thou/uL (130-400); RBC Distribution Width 13.8 % (11.5-14.5); Red Blood Cell (RBC) Count 3.79 mill/uL (4.20-5.40); White Blood Cell (WBC) Count 13.8 thou/uL (4.8-10.8)
[2021-12-03 10:03] LABS: Anion Gap 14 mmol/L (10-20); BUN (Urea Nitrogen) 11 mg/dL (9.8-20.1); Calc. Creatinine Clearance 43 mL/min (70-130); Calcium 9.1 mg/dL (7.8-10.44); Carbon Dioxide 23 mmol/L (23-31); Chloride 104 mmol/L (98-107); Estimated GFR 64; Glucose 119 mg/dL (80-115); Potassium 3.2 mmol/L (3.5-5.1); Sodium 138 mmol/L (136-145)
[2021-12-03 11:22] LABS: SARS-CoV-2 NAA Rapid Test Not Detected (NotDetected)
[2021-12-03 11:48] VITALS: BP 176/77
[2021-12-04] MEDS ORDERED: Potassium Chloride 20 MEQ TAB PO SCH (08:00)
== END 2021-12-03 13:00 | disposition home or self-care (01) ==
LOC: ERS 16:45 → 2SW 19:16
PROVIDERS: ADMIT Specialist; ATTEND Specialist
DX: N39.0 Urinary tract infection, site not specified (principal); J32.0 Chronic maxillary sinusitis; E87.6 Hypokalemia; E86.0 Dehydration; R07.89 Other chest pain; G89.29 Other chronic pain; M54.9 Dorsalgia, unspecified; F17.210 Nicotine dependence, cigarettes, uncomplicated; Z85.038 Personal history of other malignant neoplasm of large intestine; Z79.899 Other long term (current) drug therapy; Z88.0 Allergy status to penicillin; Z88.5 Allergy status to narcotic agent; Z88.6 Allergy status to analgesic agent; Z20.822 Contact with and (suspected) exposure to COVID-19
CPT/HCPCS: 51702; 70450; 71046; 80048; 80307; 82140; 82550; 83605; 83690; 84484 ×2; 85025; 87040; 93005; 96361; 96365; 96375; 99285; G0378 ×3; U0002; 36415; 80053; 81003; 81015; 84443; J0692; J0696; J3490; U0003; U0005

== ENCOUNTER 2023-05-22 14:11 | Observation (INO) | payer MEDICARE, OTHER ==
[2023-05-22] MEDS ORDERED: methylPREDNISolone Sod Succ/PF 125 MG/2 ML VIAL ONE (15:07)
[2023-05-22] MEDS ORDERED: Ipratropium/Albuterol 3 ML NEB ONE (15:29)
[2023-05-22 16:03] LABS: #Basophils 0.1 thou/uL (0.0-0.2); #Monocytes 0.9 thou/uL (0.11-0.59); #Neutrophils 9.3 thou/uL (1.40-6.50); %Basophils 0.6 % (0.0-1.0); %Eosinophils 0.2 % (0.0-10.0); %Lymphocytes 18.9 % (21.0-51.0); %Monocytes 7.1 % (0.0-10.0); %Neutrophils 72.8 % (42.0-75.0); Hematocrit 40.1 % (36.0-47.0); Hemoglobin 13.8 g/dL (12.0-16.0); Mean Corpuscular HGB CONC 34.4 g/dL (32.0-36.0); Mean Corpuscular Hemoglobin 31.2 pg (27.0-31.0); Mean Corpuscular Volume 90.7 fl (78.0-98.0); Mean Platelet Volume 11.1 fL (7.4-10.4); Platelet Count 210 10x3/uL (130-400); RBC Distribution Width 12.5 % (11.5-14.5); Red Blood Cell (RBC) Count 4.42 mill/uL (4.20-5.40); White Blood Cell (WBC) Count 12.8 10x3/uL (4.8-10.8)
[2023-05-22 16:28] LABS: ALT (SGPT) 12 U/L (8-55); AST (SGOT) 17 U/L (5-34); Albumin 3.8 g/dL (3.4-4.8); Alkaline Phosphatase 100 U/L (40-110); Anion Gap 9 mmol/L (10-20); BUN (Urea Nitrogen) 7 mg/dL (9.8-20.1); Bilirubin, Total 0.3 mg/dL (0.2-1.2); Calc. Creatinine Clearance 0 mL/min (70-130); Calcium 9.5 mg/dL (7.8-10.44); Carbon Dioxide 26 mmol/L (23-31); Chloride 108 mmol/L (98-107); Estimated GFR 63; Globulin 2.7 g/dL (2.4-3.5); Glucose 92 mg/dL (83-110); Magnesium 1.7 mg/dL (1.6-2.6); Potassium 3.2 mmol/L (3.5-5.1); Protein, Total 6.5 g/dL (5.8-8.1); Sodium 140 mmol/L (136-145)
[2023-05-22 16:37] LABS: Troponin I Less than 0.010 ng/mL (< 0.028)
[2023-05-22 16:39] LABS: Troponin I Less than 0.010 ng/mL (< 0.028)
[2023-05-22] MEDS ORDERED: Nitroglycerin 0.4 MG TAB (25 Tab Bottle) SL PRN (17:19)
[2023-05-22] MEDS ORDERED: Ondansetron PF 4 MG/2 ML Vial IVP PRN (17:19)
[2023-05-22] MEDS ORDERED: Ondansetron ODT 4 MG TAB PO PRN (17:19)
[2023-05-22] MEDS ORDERED: Potassium Chloride 20 MEQ TAB ONE (17:46)
[2023-05-22] MEDS ORDERED: traZODone HCl 50 MG TAB PO PRN (18:16)
[2023-05-22] MEDS: Magnesium Oxide 400 MG TAB PO SCH (18:50)
[2023-05-22] MEDS: Acetaminophen 325 MG TAB PO PRN (21:39)
[2023-05-22] MEDS: traZODone HCl 50 MG TAB PO SCH (21:40)
[2023-05-22 22:05] VITALS: BMI 20.1
[2023-05-23 00:01] LABS: HIV (1/2) Antibody/Antigen Non-Reactive (NonReactive); HIV 1/2 INDEX 0.16 S/CO (<1.00)
[2023-05-23 04:15] LABS: #Monocytes 0.4 thou/uL (0.11-0.59); #Neutrophils 8.7 thou/uL (1.40-6.50); %Basophils 0.1 % (0.0-1.0); %Lymphocytes 12.2 % (21.0-51.0); %Monocytes 3.6 % (0.0-10.0); %Neutrophils 83.7 % (42.0-75.0); Hematocrit 37.5 % (36.0-47.0); Hemoglobin 12.5 g/dL (12.0-16.0); Mean Corpuscular HGB CONC 33.3 g/dL (32.0-36.0); Mean Corpuscular Hemoglobin 30.9 pg (27.0-31.0); Mean Corpuscular Volume 92.6 fl (78.0-98.0); Mean Platelet Volume 11.1 fL (7.4-10.4); Platelet Count 196 10x3/uL (130-400); RBC Distribution Width 12.6 % (11.5-14.5); Red Blood Cell (RBC) Count 4.05 mill/uL (4.20-5.40); White Blood Cell (WBC) Count 10.4 10x3/uL (4.8-10.8)
[2023-05-23 04:40] LABS: Anion Gap 10 mmol/L (10-20); BUN (Urea Nitrogen) 12 mg/dL (9.8-20.1); Calc. Creatinine Clearance 43 mL/min (70-130); Calcium 9.5 mg/dL (7.8-10.44); Carbon Dioxide 24 mmol/L (23-31); Cardiac Risk 3.3 (Less than 4.5); Chloride 109 mmol/L (98-107); Cholesterol 108 mg/dl (< 200 Desired); Estimated GFR 63; Glucose 161 mg/dL (83-110); HDL Cholesterol 33 mg/dL (>60 Neg Risk); LDL Cholesterol, Calculated 64 mg/dL; Potassium 4.4 mmol/L (3.5-5.1); Sodium 139 mmol/L (136-145); Triglycerides 56 mg/dL (Less than 150)
[2023-05-23] MEDS ORDERED: Lactated Ringer's 1,000 ML IV SCH (09:15)
[2023-05-23] MEDS ORDERED: Regadenoson 0.4 MG/5 ML SYRINGE ONE (10:14)
[2023-05-23] MEDS: Aspirin Chewable 81 MG TAB PO SCH (12:50)
[2023-05-23] MEDS: Citalopram 20 MG TAB PO SCH (12:51)
[2023-05-23] MEDS: traMADol HCl 50 MG TAB PO PRN (15:00)
[2023-05-23] MEDS: Nicotine 21 MG PATCH TD PRN (15:01)
[2023-05-23] MEDS: clonazePAM 0.5 MG TAB PO PRN (21:19)
[2023-05-23] MEDS: Atorvastatin Calcium 20 MG TAB PO SCH (21:19)
[2023-05-24] MEDS: Ipratropium/Albuterol 3 ML NEB NEB PRN (03:33)
[2023-05-24] MEDS: diphenhydrAMINE 25 MG CAP PO SCH (04:30)
[2023-05-24 08:14] VITALS: BP 126/58; TEMP 98.1
[2023-05-24 16:14] LABS: %CD4 (Helper/Inducer) 41.1 % (30.8-58.5); Absolute CD4 493 /uL (359-1519); Lymphocytes/Gated Cell Count 1.2 x10E3/uL (0.7-3.1); Total Lymphocyte 12 % (Not Estab.)
== END 2023-05-24 11:57 | disposition home or self-care (01) ==
LOC: ERS 14:11 → ERHOLD 17:24 → 2SW 20:48
PROVIDERS: ADMIT Physician Assistant; ATTEND Family Medicine
PROC: B246ZZZ Ultrasonography of Right and Left Heart (ICD-10-PCS; principal; 2023-05-22)
DX: R07.89 Other chest pain (principal); J44.9 Chronic obstructive pulmonary disease, unspecified; E87.6 Hypokalemia; F41.9 Anxiety disorder, unspecified; I12.9 Hypertensive chronic kidney disease with stage 1 through stage 4 chronic kidney disease, or unspecified chronic kidney disease; N18.30 Chronic kidney disease, stage 3 unspecified; E78.5 Hyperlipidemia, unspecified; R91.1 Solitary pulmonary nodule; M54.9 Dorsalgia, unspecified; F03.90 Unspecified dementia, unspecified severity, without behavioral disturbance, psychotic disturbance, mood disturbance, and anxiety; G89.29 Other chronic pain; Z88.8 Allergy status to other drugs, medicaments and biological substances; Z88.5 Allergy status to narcotic agent; Z88.0 Allergy status to penicillin; Z85.038 Personal history of other malignant neoplasm of large intestine; Z79.899 Other long term (current) drug therapy; Z87.891 Personal history of nicotine dependence; Z90.49 Acquired absence of other specified parts of digestive tract; Z90.89 Acquired absence of other organs; Z98.890 Other specified postprocedural states
CPT/HCPCS: 71045; 78452; 80048; 80061; 83735; 83880; 84484 ×2; 85025; 86361; 87389; 93005; 93017; 93306; 94640 ×2; 96374; 99285; A9502; J2785; 36415; 80053; 84443; G0378; J2930; J7620

== ENCOUNTER 2023-09-23 17:58 | Inpatient (IN) | payer MEDICARE, OTHER ==
[2023-09-23 18:59] LABS: #Basophils 0.05 10x3/uL (0.0-0.2); %Basophils 0.5 % (0.0-1.0); %Eosinophils 1.1 % (0.0-10.0); %Lymphocytes 20.2 % (21.0-51.0); %Monocytes 7.3 % (0.0-10.0); %Neutrophils 70.6 % (42.0-75.0); Hematocrit 38.1 % (36.0-47.0); Hemoglobin 12.4 g/dL (12.0-16.0); Mean Corpuscular HGB CONC 32.5 g/dL (32.0-36.0); Mean Corpuscular Hemoglobin 30.3 pg (27.0-31.0); Mean Corpuscular Volume 93.2 fL (78.0-98.0); Mean Platelet Volume 10.2 fL (7.4-10.4); Platelet Count 213 10x3/uL (130-400); Red Blood Cell (RBC) Count 4.09 mill/uL (4.20-5.40)
[2023-09-23 19:13] LABS: ALT (SGPT) 11 U/L (8-55); AST (SGOT) 17 U/L (5-34); Albumin 3.3 g/dL (3.4-4.8); Alkaline Phosphatase 79 U/L (40-110); Anion Gap 14 mmol/L (10-20); BUN (Urea Nitrogen) 11 mg/dL (9.8-20.1); Bilirubin, Total 0.2 mg/dL (0.2-1.2); Calc. Creatinine Clearance 0 mL/min (70-130); Calcium 9.2 mg/dL (7.8-10.44); Carbon Dioxide 19 mmol/L (23-31); Chloride 108 mmol/L (98-107); Estimated GFR 79; Globulin 2.9 g/dL (2.4-3.5); Glucose 100 mg/dL (83-110); Potassium 3.7 mmol/L (3.5-5.1); Protein, Total 6.2 g/dL (5.8-8.1); Sodium 137 mmol/L (136-145)
[2023-09-23 19:18] LABS: Troponin I 0.065 ng/mL (< 0.028)
[2023-09-23] MEDS ORDERED: Nitroglycerin 0.4 MG TAB (25 Tab Bottle) SL PRN (21:00)
[2023-09-23] MEDS ORDERED: Ondansetron ODT 4 MG TAB PO PRN (21:00)
[2023-09-23] MEDS ORDERED: Ipratropium/Albuterol 3 ML NEB EZPAP PRN (21:00)
[2023-09-23] MEDS ORDERED: Ondansetron PF 4 MG/2 ML Vial IVP PRN (21:00)
[2023-09-23 22:31] VITALS: BMI 18.7
[2023-09-23] MEDS: Ipratropium/Albuterol 3 ML NEB EZPAP SCH (22:35)
[2023-09-23] MEDS: traZODone HCl 50 MG TAB PO PRN (23:02)
[2023-09-24 01:10] LABS: Magnesium 1.9 mg/dL (1.6-2.6)
[2023-09-24 01:14] LABS: Troponin I 0.061 ng/mL (< 0.028)
[2023-09-24 05:17] LABS: #Basophils 0.03 10x3/uL (0.0-0.2); %Basophils 0.4 % (0.0-1.0); %Eosinophils 2.1 % (0.0-10.0); %Lymphocytes 29.5 % (21.0-51.0); %Monocytes 8.3 % (0.0-10.0); %Neutrophils 59.4 % (42.0-75.0); Hematocrit 37.8 % (36.0-47.0); Hemoglobin 12.4 g/dL (12.0-16.0); Mean Corpuscular HGB CONC 32.8 g/dL (32.0-36.0); Mean Corpuscular Hemoglobin 29.9 pg (27.0-31.0); Mean Corpuscular Volume 91.1 fL (78.0-98.0); Mean Platelet Volume 10.5 fL (7.4-10.4); Platelet Count 198 10x3/uL (130-400); Red Blood Cell (RBC) Count 4.15 mill/uL (4.20-5.40)
[2023-09-24 05:50] LABS: Anion Gap 13 mmol/L (10-20); BUN (Urea Nitrogen) 10 mg/dL (9.8-20.1); Calc. Creatinine Clearance 49 mL/min (70-130); Calcium 9.3 mg/dL (7.8-10.44); Carbon Dioxide 23 mmol/L (23-31); Chloride 109 mmol/L (98-107); Estimated GFR 79; Glucose 75 mg/dL (83-110); Potassium 3.6 mmol/L (3.5-5.1); Sodium 141 mmol/L (136-145)
[2023-09-24] MEDS: traMADol HCl 50 MG TAB PO PRN (08:48)
[2023-09-24] MEDS ORDERED: Non-Formulary Item 1 EACH (Trazodone Hcl [Trazodone Hcl] 100 MG Tablet) PO SCH (09:00)
[2023-09-24] MEDS: Losartan 25 MG TAB PO SCH (10:50)
[2023-09-24] MEDS: clonazePAM 0.5 MG TAB PO SCH (10:50)
[2023-09-24] MEDS: Amlodipine 5 MG TAB PO SCH (10:50)
[2023-09-24] MEDS: Citalopram 20 MG TAB PO SCH (10:50)
[2023-09-24] MEDS ORDERED: Iopamidol 370 76% 100 ML VIAL ONE (15:02)
[2023-09-24] MEDS: Acetaminophen 325 MG TAB PO PRN (17:00)
[2023-09-24] MEDS: Atorvastatin Calcium 20 MG TAB PO SCH (20:58)
[2023-09-25 13:15] VITALS: BP 109/62; TEMP 98
== END 2023-09-25 15:11 | disposition home or self-care (01) | DRG 282 ==
LOC: ERS 17:58 → 2SE 20:20 → OBSVTOIN 09-24 15:59
PROVIDERS: ADMIT Student in an Organized Health Care Education/Training Program; ATTEND Internal Medicine
DX: R07.89 Other chest pain (principal); I21.A1 Myocardial infarction type 2; I10 Essential (primary) hypertension; J44.9 Chronic obstructive pulmonary disease, unspecified; G89.29 Other chronic pain; E78.5 Hyperlipidemia, unspecified; M54.9 Dorsalgia, unspecified; F43.10 Post-traumatic stress disorder, unspecified; Z21 Asymptomatic human immunodeficiency virus [HIV] infection status; F17.210 Nicotine dependence, cigarettes, uncomplicated; F41.9 Anxiety disorder, unspecified; F32.A Depression, unspecified; Z88.8 Allergy status to other drugs, medicaments and biological substances; Z79.899 Other long term (current) drug therapy; Z85.42 Personal history of malignant neoplasm of other parts of uterus; Z88.5 Allergy status to narcotic agent; Z88.0 Allergy status to penicillin; Z90.49 Acquired absence of other specified parts of digestive tract; Z90.710 Acquired absence of both cervix and uterus; Z85.038 Personal history of other malignant neoplasm of large intestine
CPT/HCPCS: 36415; 71045; 71260; 80048; 80053; 83735; 84484; 85025; 93005; 94640; G0378; J7620

== ENCOUNTER 2023-09-30 14:40 | Inpatient (IN) | payer MEDICARE ==
[2023-09-30 17:08] VITALS: BMI 19.8
[2023-09-30] MEDS ORDERED: Ondansetron PF 4 MG/2 ML Vial IVP PRN (17:43)
[2023-09-30] MEDS ORDERED: Ondansetron ODT 4 MG TAB PO PRN (17:43)
[2023-09-30] MEDS: Ipratropium/Albuterol 3 ML NEB EZPAP SCH (18:45)
[2023-09-30] MEDS: Mometasone 100 MCG/Formoterol 5 MCG 120 PUFF INHALER INH SCH (18:51)
[2023-09-30] MEDS: Potassium Chloride 20 MEQ TAB PO SCH (18:54)
[2023-09-30] MEDS: clonazePAM 0.5 MG TAB PO PRN (18:55)
[2023-09-30] MEDS: tiZANidine HCl 4 MG TAB PO PRN (18:55)
[2023-09-30] MEDS: Magnesium 2 GM/50 ML(in water) 2 GM in Premix 1 BAG IVPB SCH (18:56)
[2023-09-30] MEDS: Acetaminophen 325 MG TAB PO PRN (19:04)
[2023-09-30] MEDS: guaiFENesin ER 600 MG TAB PO SCH (21:59)
[2023-09-30] MEDS: Atorvastatin Calcium 20 MG TAB PO SCH (21:59)
[2023-09-30 23:19] LABS: Influenza A by NAA Not Detected (NotDetected); Influenza B by NAA Not Detected (NotDetected); SARS-CoV-2 NAA Rapid Test Not Detected (NotDetected)
[2023-09-30 23:53] LABS: Legionella Urinary Ag Negative (Negative); Strep pneumo Urine Ag NEGATIVE (NEGATIVE)
[2023-10-01 05:12] LABS: #Basophils Less than 0.03 10x3/uL (0.0-0.2); #Eosinphils Less than 0.03 10x3/uL (0.0-0.7); %Basophils 0.1 % (0.0-1.0); %Lymphocytes 11.5 % (21.0-51.0); %Monocytes 7.6 % (0.0-10.0); %Neutrophils 80.5 % (42.0-75.0); Hematocrit 37.5 % (36.0-47.0); Hemoglobin 12.2 g/dL (12.0-16.0); Mean Corpuscular HGB CONC 32.5 g/dL (32.0-36.0); Mean Corpuscular Hemoglobin 29.7 pg (27.0-31.0); Mean Corpuscular Volume 91.2 fL (78.0-98.0); Mean Platelet Volume 10.6 fL (7.4-10.4); Platelet Count 158 10x3/uL (130-400); RBC Distribution Width 12.7 % (11.5-14.5); Red Blood Cell (RBC) Count 4.11 mill/uL (4.20-5.40)
[2023-10-01] MEDS: LevoFLOXacin 750 MG TAB PO SCH (05:14)
[2023-10-01 07:22] LABS: ALT (SGPT) 8 U/L (8-55); AST (SGOT) 13 U/L (5-34); Alkaline Phosphatase 71 U/L (40-110); Anion Gap 15 mmol/L (10-20); BUN (Urea Nitrogen) 18 mg/dL (9.8-20.1); Bilirubin, Total 0.2 mg/dL (0.2-1.2); Calc. Creatinine Clearance 42 mL/min (70-130); Calcium 10.1 mg/dL (7.8-10.44); Carbon Dioxide 20 mmol/L (23-31); Chloride 105 mmol/L (98-107); Estimated GFR 63; Globulin 3.3 g/dL (2.4-3.5); Glucose 147 mg/dL (83-110); Potassium 4.4 mmol/L (3.5-5.1); Protein, Total 6.3 g/dL (5.8-8.1); Sodium 136 mmol/L (136-145)
[2023-10-01] MEDS: Losartan 25 MG TAB PO SCH (09:13)
[2023-10-01] MEDS: methylPREDNISolone Sod Succ 40 MG VIAL IVP SCH (09:14)
[2023-10-01] MEDS: Enoxaparin 40 MG (0.4 mL) SYRINGE SC SCH (09:14)
[2023-10-01] MEDS: Amlodipine 5 MG TAB PO SCH (09:14)
[2023-10-01 11:07] VITALS: BMI 19.8
[2023-10-01] MEDS: Nicotine 21 MG PATCH TD SCH (12:00)
[2023-10-02 08:42] LABS: #Basophils Less than 0.03 10x3/uL (0.0-0.2); #Eosinphils Less than 0.03 10x3/uL (0.0-0.7); %Basophils 0.1 % (0.0-1.0); %Eosinophils 0.2 % (0.0-10.0); %Lymphocytes 16.2 % (21.0-51.0); %Monocytes 4.9 % (0.0-10.0); %Neutrophils 78.2 % (42.0-75.0); Hematocrit 39.3 % (36.0-47.0); Hemoglobin 12.6 g/dL (12.0-16.0); Mean Corpuscular HGB CONC 32.1 g/dL (32.0-36.0); Mean Corpuscular Hemoglobin 30.1 pg (27.0-31.0); Mean Corpuscular Volume 93.8 fL (78.0-98.0); Mean Platelet Volume 10.3 fL (7.4-10.4); Platelet Count 182 10x3/uL (130-400); Red Blood Cell (RBC) Count 4.19 mill/uL (4.20-5.40)
[2023-10-02 08:57] LABS: ALT (SGPT) 8 U/L (8-55); AST (SGOT) 12 U/L (5-34); Albumin 3.2 g/dL (3.4-4.8); Alkaline Phosphatase 72 U/L (40-110); Anion Gap 11 mmol/L (10-20); BUN (Urea Nitrogen) 14 mg/dL (9.8-20.1); Bilirubin, Total 0.2 mg/dL (0.2-1.2); Calc. Creatinine Clearance 45 mL/min (70-130); Calcium 9.7 mg/dL (7.8-10.44); Carbon Dioxide 26 mmol/L (23-31); Chloride 109 mmol/L (98-107); Estimated GFR 67; Globulin 3.5 g/dL (2.4-3.5); Glucose 82 mg/dL (83-110); Potassium 3.5 mmol/L (3.5-5.1); Protein, Total 6.7 g/dL (5.8-8.1); Sodium 142 mmol/L (136-145)
[2023-10-02] MEDS: ALPRAZolam 0.25 MG TAB PO PRN (11:30)
[2023-10-02] MEDS: Aspirin 325 MG TAB PO SCH (19:29)
[2023-10-02] MEDS: Nitroglycerin 0.4 MG TAB (25 Tab Bottle) SL SCH (19:29)
[2023-10-02] MEDS: Nitroglycerin 0.4 MG TAB (25 Tab Bottle) SL PRN (19:41)
[2023-10-02 19:51] LABS: Troponin I Less than 0.010 ng/mL (< 0.028)
[2023-10-03 05:21] LABS: #Basophils Less than 0.03 10x3/uL (0.0-0.2); #Eosinphils Less than 0.03 10x3/uL (0.0-0.7); %Basophils 0.2 % (0.0-1.0); %Eosinophils 0.2 % (0.0-10.0); %Lymphocytes 18.4 % (21.0-51.0); %Monocytes 5.1 % (0.0-10.0); %Neutrophils 75.8 % (42.0-75.0); Hematocrit 37.1 % (36.0-47.0); Hemoglobin 11.8 g/dL (12.0-16.0); Mean Corpuscular HGB CONC 31.8 g/dL (32.0-36.0); Mean Corpuscular Hemoglobin 29.9 pg (27.0-31.0); Mean Corpuscular Volume 93.9 fL (78.0-98.0); Mean Platelet Volume 10.5 fL (7.4-10.4); Platelet Count 178 10x3/uL (130-400); RBC Distribution Width 13.1 % (11.5-14.5); Red Blood Cell (RBC) Count 3.95 mill/uL (4.20-5.40)
[2023-10-03 05:35] LABS: ALT (SGPT) 8 U/L (8-55); AST (SGOT) 12 U/L (5-34); Albumin 3.1 g/dL (3.4-4.8); Alkaline Phosphatase 65 U/L (40-110); Anion Gap 12 mmol/L (10-20); BUN (Urea Nitrogen) 13 mg/dL (9.8-20.1); Bilirubin, Total 0.2 mg/dL (0.2-1.2); Calc. Creatinine Clearance 42 mL/min (70-130); Calcium 9.4 mg/dL (7.8-10.44); Carbon Dioxide 25 mmol/L (23-31); Chloride 109 mmol/L (98-107); Estimated GFR 61; Globulin 2.8 g/dL (2.4-3.5); Glucose 117 mg/dL (83-110); Potassium 3.8 mmol/L (3.5-5.1); Protein, Total 5.9 g/dL (5.8-8.1); Sodium 142 mmol/L (136-145)
[2023-10-04 16:07] VITALS: BP 122/58; TEMP 98
== END 2023-10-04 17:23 | disposition home or self-care (01) | DRG 189 ==
LOC: SJJU 16:24 → OBSVTOIN 10-01 16:41
PROVIDERS: ADMIT Family Medicine; ATTEND Internal Medicine
DX: J96.01 Acute respiratory failure with hypoxia (principal); J44.1 Chronic obstructive pulmonary disease with (acute) exacerbation; I10 Essential (primary) hypertension; E78.5 Hyperlipidemia, unspecified; R91.1 Solitary pulmonary nodule; E88.09 Other disorders of plasma-protein metabolism, not elsewhere classified; Z88.0 Allergy status to penicillin; Z88.8 Allergy status to other drugs, medicaments and biological substances; Z88.5 Allergy status to narcotic agent; Z79.899 Other long term (current) drug therapy; Z79.82 Long term (current) use of aspirin; Z90.49 Acquired absence of other specified parts of digestive tract; Z98.890 Other specified postprocedural states
CPT/HCPCS: 36415; 71045; 80053; 84145; 84484; 85025; 87449; 87899; 93005; 93010; 94640; 96372; 96374; 96375; G0378; J1650; J2920; J3475; J7620

== ENCOUNTER 2024-03-16 10:46 | Emergency (ER) | payer MEDICARE, OTHER ==
[2024-03-16 11:34] LABS: #Basophils 0.08 10x3/uL (0.0-0.2); %Basophils 0.7 % (0.0-1.0); %Eosinophils 0.7 % (0.0-10.0); %Lymphocytes 19.2 % (21.0-51.0); %Monocytes 6.9 % (0.0-10.0); %Neutrophils 72.1 % (42.0-75.0); Hematocrit 44.6 % (36.0-47.0); Hemoglobin 14.9 g/dL (12.0-16.0); Mean Corpuscular HGB CONC 33.4 g/dL (32.0-36.0); Mean Corpuscular Hemoglobin 30.5 pg (27.0-31.0); Mean Corpuscular Volume 91.2 fL (78.0-98.0); Mean Platelet Volume 10.1 fL (7.4-10.4); Platelet Count 248 10x3/uL (130-400); RBC Distribution Width 12.8 % (11.5-14.5); Red Blood Cell (RBC) Count 4.89 mill/uL (4.20-5.40)
[2024-03-16 12:07] LABS: ALT (SGPT) 11 U/L (8-55); AST (SGOT) 20 U/L (5-34); Albumin 3.8 g/dL (3.4-4.8); Alkaline Phosphatase 113 U/L (40-110); Anion Gap 11 mmol/L (10-20); BUN (Urea Nitrogen) 15 mg/dL (9.8-20.1); Bilirubin, Total 0.4 mg/dL (0.2-1.2); Calc. Creatinine Clearance 0 mL/min (70-130); Calcium 10.3 mg/dL (7.8-10.44); Carbon Dioxide 23 mmol/L (23-31); Chloride 105 mmol/L (98-107); Estimated GFR 61; Globulin 3.8 g/dL (2.4-3.5); Glucose 105 mg/dL (83-110); Lipase 9 U/L (8-78); Magnesium 1.9 mg/dL (1.6-2.6); Potassium 4.3 mmol/L (3.5-5.1); Protein, Total 7.6 g/dL (5.8-8.1); Sodium 135 mmol/L (136-145)
[2024-03-16 12:12] LABS: Troponin I Less than 0.010 ng/mL (< 0.028)
[2024-03-16] MEDS ORDERED: fentaNYL 50 mcg/mL 1 mL Vial ONE (12:15)
[2024-03-16] MEDS ORDERED: methylPREDNISolone Sod Succ/PF 125 MG/2 ML VIAL ONE (12:15)
[2024-03-16] MEDS ORDERED: hydrOXYzine 25 MG TAB ONE (14:21)
== END 2024-03-16 15:02 | disposition home or self-care (01) ==
LOC: ERS 10:46
DX: R07.89 Other chest pain (principal); I10 Essential (primary) hypertension; F17.210 Nicotine dependence, cigarettes, uncomplicated
CPT/HCPCS: 71045; 80053; 83690; 83735; 83880; 84484; 85025; 93005; 94640; 94760; J2919; J3010; 36415; 96374; 96375